=== PATIENT | male | born 1985 | race Two or more races ===

== ENCOUNTER 2016-05-15 19:10 | Emergency (ER) | payer OTHER ==
[~2016-05-15] VITALS: Ht 177.8 cm; Wt 86.2 kg
[2016-05-15 19:18] VITALS: BP 134/84
--- NOTE | 2016-05-15 19:23 | NUR ---
PT BIB [facility] FOR OK TO BOOK. NAD NOTED. NOTED WITH LONG BUT SUPERFICIAL LAC TO LEFT UPPER LEG. DENIES PAIN. NO OTHER COMPLAINTS. IN ER BED 15.
--- NOTE | 2016-05-15 20:00 | NUR ---
Patient discharged to police custody in stable condition. Written and verbal after care instructions given. Patient and [employer] verbalize understanding of instruction.
== END 2016-05-15 20:02 ==
LOC: ER 19:13
DX: S80.211A Abrasion, right knee, initial encounter (principal); S70.312A Abrasion, left thigh, initial encounter; S80.811A Abrasion, right lower leg, initial encounter; X58.XXXA Exposure to other specified factors, initial encounter; Y93.02 Activity, running; Y92.89 Other specified places as the place of occurrence of the external cause; Y99.9 Unspecified external cause status
CPT/HCPCS: 99283; A4606; A6402; Z7610